=== PATIENT | male | born 1965 | race Caucasian/White ===

== ENCOUNTER 2017-07-09 10:28 | Emergency (ER) | payer BC ==
--- NOTE | 2017-07-09 12:46 | UC ---
Throat Pain/Nasal Mitesh HPI - HPI Summary HPI Summary: TWO DAYS OF LOW GRADE FEVER (99) AND SWOLLEN TONSILS. NO RASHES. NO COUGH. NO ABDOMINAL PAIN. NO CONGESTION. - History of Current Complaint Hx Obtained From: Patient Onset/Duration: Gradual Onset, Lasting Days, Still Present Severity: Moderate Cough: None Associated Signs & Symptoms: Positive: Hoarseness, Fever - Epiglottits Risk Factors Epiglottis Risk Factors: Negative <Arpit Healy - Last Filed: 07/09/17 12:43> <Sammi Loo - Last Filed: 07/09/17 13:31> - History of Current Complaint Chief Complaint: UCGeneralIllness Stated Complaint: SORE THROAT Time Seen by Provider: 07/09/17 11:22 - Allergies/Home Medications Allergies/Adverse Reactions: Allergies Allergy/AdvReac Type Severity Reaction Status Date / Time No Known Allergies Allergy Verified 07/09/17 11:23 Home Medications: Home Medications Ibuprofen TAB* [Advil TAB*] 2 tab PO Q8HR 07/09/17 [History Confirmed 07/09/17] PMH/Surg Hx/FS Hx/Imm Hx Previously Healthy: Yes - Surgical History Surgical History: Yes Surgery Procedure, Year, and Place: inguinal hernia, meniscus tear - Family History Known Family History: Negative: Diabetes - Social History Occupation: Employed Full-time Lives: With Family Alcohol Use: Weekly Substance Use Type: None Smoking Status (MU): Former Smoker Type: Cigarettes Have You Smoked in the Last Year: No When Did the Patient Quit Smoking/Using Tobacco: 1 year ago <Arpit Healy - Last Filed: 07/09/17 12:43> Review of Systems Constitutional: Fever Skin: Negative Eyes: Negative ENT: Sore Throat Respiratory: Negative Cardiovascular: Negative Gastrointestinal: Negative Genitourinary: Negative Motor: Negative Neurovascular: Negative Musculoskeletal: Negative Neurological: Negative Psychological: Negative Is Patient Immunocompromised?: No All Other Systems Reviewed And Are Negative: Yes <Arpit Healy - Last Filed: 07/09/17 12:43> Physical Exam Triage Information Reviewed: Yes Appearance: Well-Appearing, No Pain Distress, Well-Nourished Vital Signs: Initial Vital Signs Temp 99.4 F 07/09/17 11:20 Pulse 80 07/09/17 11:20 Resp 18 07/09/17 11:20 BP 156/95 07/09/17 11:20 Pulse Ox 99 07/09/17 11:20 Vital Signs Reviewed: Yes Eye Exam: Normal ENT: Positive: Hearing grossly normal, Pharyngeal erythema, TMs normal, Tonsillar swelling Dental Exam: Normal Neck exam: Normal Respiratory Exam: Normal Respiratory: Positive: Chest non-tender, Lungs clear, Normal breath sounds, No respiratory distress Cardiovascular Exam: Normal Cardiovascular: Positive: RRR, No Murmur, Pulses Normal Abdominal Exam: Normal Musculoskeletal Exam: Normal Musculoskeletal: Positive: Strength Intact, ROM Intact Neurological Exam: Normal Psychological Exam: Normal Skin Exam: Normal <Arpit Healy - Last Filed: 07/09/17 12:43> Vital Signs: Initial Vital Signs Temp 99.4 F 07/09/17 11:20 Pulse 80 07/09/17 11:20 Resp 18 07/09/17 11:20 BP 156/95 07/09/17 11:20 Pulse Ox 99 07/09/17 11:20 <Sammi Loo - Last Filed: 07/09/17 13:31> Throat Pain/Nasal Course/Dx - Differential Dx/Diagnosis Differential Diagnosis/HQI/PQRI: Pharyngitis, Tonsillitis Provider Diagnoses: TONSILLITIS <Arpit Healy - Last Filed: 07/09/17 12:43> Discharge <Arpit Healy - Last Filed: 07/09/17 12:43> <Sammi Loo - Last Filed: 07/09/17 13:31> - Discharge Plan Condition: Stable Disposition: HOME Patient Education Materials: Tonsillitis (ED) Referrals: [facility] [Outside] No Primary Care Phys,NOPCP [Primary Care Provider] - Attestation Statement User Type: Provider - I was available for consult. This patient was seen by the MIGUEL. The patient was not presented to, seen by, or examined by me. -Rubina <Sammi Loo - Last Filed: 07/09/17 13:31>
== END 2017-07-09 12:20 | disposition home or self-care (01) ==
LOC: UCEAST 10:28
DX: J03.90 Acute tonsillitis, unspecified (principal); Z87.891 Personal history of nicotine dependence
CPT/HCPCS: 87651; 99201; G0463

== ENCOUNTER 2017-12-18 09:33 | Emergency (ER) | payer BC ==
[2017-12-18 09:56] VITALS: BP 160/94
--- NOTE | 2017-12-18 12:21 | UC ---
Abdominal Pain Male HPI - HPI Summary HPI Summary: PT WITH 1 MONTH OF SHARP LOWER ABDOMINAL PAIN. EPISODES OCCUR MULTIPLE TIMES PER HOUR LASTING SECONDS TO MINUTES. STATES THE EPISODES ARE BECOMING MORE FREQUENT AND MORE INTENSE. WAS IN [place] PRIOR TO ONSET OF SX. PT DENIES ANY FEVER OR VOMITING. HAS BEEN FEELING SLIGHTLY CONSTIPATED OVER THE PAST FEW DAYS. BM TODAY WAS HARD. STOOLS HAVE BEEN MUCUSY AND HAS HAD SOME BLOOD STREAKING WELL. NO CP, SOB, NAUSEA, FEVER. FEELS BETTER AFTER PASSING GAS. - History of Current Complaint Chief Complaint: UCAbdominalPain Stated Complaint: ABDOMINAL PAIN Time Seen by Provider: 12/18/17 11:44 Hx Obtained From: Patient Onset/Duration: Sudden Onset, Lasting Weeks, Still Present Timing: Intermittent Episodes Lasting: - SECONDS - MINUTES Severity Initially: Moderate Severity Currently: Moderate Pain Intensity: 5 Pain Scale Used: 0-10 Numeric Location: Discrete At: LLQ Radiates: No Character: Sharp Aggravating Factor(s): Nothing Associated Signs And Symptoms: Positive: Constipation, Blood in Stool. Negative : Diaphoresis, Fever, Cough, Chest Pain, Dizzy, Back Pain, Urinary Symptoms, Vomiting, Diarrhea - Allergies/Home Medications Allergies/Adverse Reactions: Allergies Allergy/AdvReac Type Severity Reaction Status Date / Time No Known Allergies Allergy Verified 12/18/17 09:44 Home Medications: Home Medications NK [No Home Medications Reported] 12/18/17 [History Confirmed 12/18/17] PMH/Surg Hx/FS Hx/Imm Hx Previously Healthy: Yes - Surgical History Surgical History: Yes Surgery Procedure, Year, and Place: inguinal hernia, meniscus tear - Family History Known Family History: Negative: Diabetes - Social History Alcohol Use: Daily Alcohol Amount: 1-2 glasses wine per day Substance Use Type: Marijuana Substance Use Comment - Amount & Last Used: last used over 1 month ago Smoking Status (MU): Former Smoker Type: Cigarettes Have You Smoked in the Last Year: No When Did the Patient Quit Smoking/Using Tobacco: 1 year ago Review of Systems Constitutional: Negative Skin: Negative Respiratory: Negative Cardiovascular: Negative Gastrointestinal: Abdominal Pain Genitourinary: Negative All Other Systems Reviewed And Are Negative: Yes Physical Exam Triage Information Reviewed: Yes Appearance: Well-Appearing, No Pain Distress, Well-Nourished Vital Signs: Initial Vital Signs Temp 98.8 F 12/18/17 09:42 Pulse 88 12/18/17 09:42 Resp 18 12/18/17 09:42 BP 180/97 12/18/17 09:42 Pulse Ox 97 12/18/17 09:42 Vital Signs Reviewed: Yes Eyes: Positive: Conjunctiva Clear ENT: Positive: Hearing grossly normal Neck: Positive: Supple Respiratory Exam: Normal Cardiovascular Exam: Normal Abdomen Description: Positive: Soft, Distended - MILDLY, Other: - TTP LLQ. NO REBOUND OR RIGIDITY. Negative: CVA Tenderness (R), CVA Tenderness (L), Guarding Bowel Sounds: Positive: Present Musculoskeletal: Positive: No Edema Neurological: Positive: Alert Psychological: Positive: Age Appropriate Behavior Skin: Negative: rashes Abd Pain Male Course/Dx - Course Course Of Treatment: PT DECLINES TIMOTHY. CHECK CBC, CMP AND SEND TO GI FOR ADDITIONAL W/U. HOME WITH STOOL KIT. TO ER IF SX WORSEN. - Differential Dx/Clinical Impression Provider Diagnoses: ABDOMINAL PAIN, NOS Discharge - Discharge Plan Condition: Stable Disposition: HOME Patient Education Materials: Acute Abdominal Pain (ED) Referrals: No Primary Care Phys,NOPCP [Primary Care Provider] - Additional Instructions: UNCLEAR ETIOLOGY OF YOUR SYMPTOMS. CONSIDER UNDERLYING PATHOLOGY IN [place]. WILL CHECK BASIC LABS INCLUDING BLOOD COUNT AND METABOLIC PANEL. BRING IN A STOOL SAMPLE FOR TESTING. FOLLOW-UP WITH GI FOR FURTHER EVALUATION. YOU MAY BENEFIT FROM A SCOPE OR IMAGING. GO TO THE ER WITHOUT FAIL IF YOU DEVELOP WORSENING PAIN, FEVER, BERNARD BLOOD PER RECTUM, SHORTNESS OF BREATH, CHEST PAIN, DIZZINESS, NAUSEA OR ANY OTHER CONCERNING SYMPTOMS. [facility] Address: [address] [place] [address] FOLLOW-UP WITH YOUR PCP IN [place] IF NEEDED. ABDOMINAL PAIN: There are many causes of abdominal pain. Pain can mean a serious problem requiring surgery (such as appendicitis), or an innocent problem which goes away on its own (such as a viral infection). Often, time must pass to determine the cause of pain. The physician does not feel that hospitalization is necessary, at present. Conditions may change, however, within the next 24 hours. Therefore, call the doctor or come back for re-examination if any problems occur, such as: 1) Pain which becomes more severe, steady, or becomes concentrated in one specific area. Also, pain which is more severe with movement or coughing. 2) Vomiting which persists or becomes more frequent. 3) Blood in the vomitus, urine, or bowel movements. Blood in the stool may have a tarry or black appearance. 4) Shaking chills or fever greater than 100 degrees F. 5) The abdomen becomes more distended or swollen. 6) Bowel movements cease. 7) Failure to improve as expected.
[2017-12-18 16:23] LABS: ABS Basophils 0 10^3/ul (0-0.2); ABS Eosinophils 0 10^3/ul (0-0.6); ABS Lymphocytes 1.6 10^3/ul (1.0-4.8); ABS Monocytes 1.2 10^3/ul (0-0.8); ABS Neutrophils 7.8 10^3/ul (1.5-7.7); ABS Nucleated RBC 0 10^3/ul; Eosinophil % 0.4 % (0-6); Hematocrit 43 % (42-52); Hemoglobin 14.1 g/dl (14.0-18.0); Lymphocyte % 14.8 % (25-47); Mean Corpuscular HGB Conc 33 g/dl (31-36); Mean Corpuscular Hemoglobin 29 pg (27-31); Mean Corpuscular Volume 88 fL (80-94); Mean Platelet Volume 7 um3 (7.4-10.4); Nucleated Red Blood Cells % 0.1; Platelet Count 380 10^3/ul (150-450); Red Blood Count 4.91 10^6/ul (4.0-5.4); Red Cell Distribution Width 14 % (10.5-15); White Blood Count 10.6 10^3/ul (3.5-10.8)
[2017-12-18 16:58] LABS: EGFR Non-African American 82.6 (>60)
== END 2017-12-18 12:32 | disposition home or self-care (01) ==
LOC: UCEAST 09:33
DX: R10.32 Left lower quadrant pain (principal); K59.00 Constipation, unspecified; K92.1 Melena; Z87.891 Personal history of nicotine dependence
CPT/HCPCS: 36415; 80053; 85025; 99212; G0463